=== PATIENT | male | born 1980 | race Caucasian/White ===

== ENCOUNTER 2016-11-08 17:58 | Inpatient (IN) | payer SELFPAY ==
[~2016-11-08] VITALS: Ht 182.9 cm; Wt 53.8 kg
[~2016-11-08 17:58] MED LIST: AMOXICILLIN 50500 MG PO; CEPHALEXIN500 M1 PO; NO HOME MEDICATIONS
[2016-11-08 18:57] LABS: HEMATOCRIT 48.6 % (42.0-52.0); HEMOGLOBIN 17.1 g/dl (13.5-18.0); MEAN CELL VOLUME 94 fl (80.0-100.0); MEAN CORPUSCULAR HEMOGLOBIN 33 pg (27.0-31.0); MEAN CORPUSCULAR HGB CONC 35 g/dl (33.0-37.0); MEAN PLATELET VOLUME 9.5 fl (7.4-10.4); PLATELET COUNT 214 K/mm3 (130-400); RED BLOOD COUNT 5.16 M/mm3 (4.20-5.60); REDCELL DISTRIBUTION WIDTH-CV 14.2 % (11.5-14.5); WHITE BLOOD COUNT 9.2 K/mm3 (4.8-10.8)
[2016-11-08 19:05] LABS: ADD PATHOLOGY DIFF REVIEW NO
[2016-11-08 19:06] LABS: ADJUSTED CALCIUM 9.1 mg/dL (8.4-10.2); ALBUMIN 4.1 gm/dL (3.5-5.0); BILIRUBIN,TOTAL 0.8 mg/dL (0.0-1.0); CALCIUM 9.2 mg/dL (8.4-10.2); CREATININE, serum 0.74 mg/dL (0.66-1.25); POTASSIUM 3.3 mmol/L (3.4-5.0); TOTAL PROTEIN 7.5 gm/dL (6.4-8.2)
[2016-11-08 19:14] LABS: BAND 50 % (0-10); NEUTROPHILS 25 % (42.0-75.2); TOTAL CELLS COUNTED 100
[2016-11-08 19:15] LABS: PLATELET ESTIMATE NORMAL (NORMAL)
[2016-11-08 19:38] LABS: C-REACTIVE PROTEIN 16.6 mg/dL (0.0-0.9)
[2016-11-08 21:17] LABS: PH 6 (5-8); SQUAMOUS EPITHELIAL 0-2 /hpf; URINE APPEARANCE Clear; URINE BACTERIA None Seen /hpf; URINE BILIRUBIN Negative (NEGATIVE); URINE BLOOD Negative (NEGATIVE); URINE COLOR Yellow; URINE GLUCOSE Negative (NEGATIVE); URINE KETONE 1+ (NEGATIVE); URINE RBC 0-2 /hpf; URINE UROBILINOGEN Negative (NEGATIVE); URINE WBC 0-2 /hpf
[2016-11-08 21:45] VITALS: BP 110/67; PULSE 82; TEMP 99
[2016-11-09] VITALS (7 sets, daily range): BP systolic 97–110; BP diastolic 61–73; PULSE 71–81; TEMP 98.3–99.1
[2016-11-10 07:03] LABS: HEMATOCRIT 40.8 % (42.0-52.0); MEAN CELL VOLUME 98 fl (80.0-100.0); MEAN CORPUSCULAR HEMOGLOBIN 33 pg (27.0-31.0); MEAN CORPUSCULAR HGB CONC 34 g/dl (33.0-37.0); MEAN PLATELET VOLUME 10.2 fl (7.4-10.4); PLATELET COUNT 212 K/mm3 (130-400); RED BLOOD COUNT 4.17 M/mm3 (4.20-5.60); REDCELL DISTRIBUTION WIDTH-CV 14.4 % (11.5-14.5)
[2016-11-10 07:07] LABS: HEMOGLOBIN 13.9 g/dl (13.5-18.0)
[2016-11-10 07:08] LABS: ADD PATHOLOGY DIFF REVIEW NO
[2016-11-10 07:19] LABS: CALCIUM 8.2 mg/dL (8.4-10.2); CREATININE, serum 0.63 mg/dL (0.66-1.25); POTASSIUM 3.7 mmol/L (3.4-5.0)
[2016-11-10 07:44] LABS: BAND 18 % (0-10); BASOPHIL 1 % (0-2); EOSINOPHIL 2 % (0-4); METAMYELOCYTE 1 % (0-0); NEUTROPHILS 27 % (42.0-75.2); TOTAL CELLS COUNTED 100
[2016-11-10 08:01] VITALS: BP 109/75; PULSE 74; TEMP 97.6
[2016-11-10 12:34] VITALS: BP 126/77; PULSE 72; TEMP 97.7
[2016-11-10] MEDS ORDERED: CIPRO 500MG TA500 MG PO (14:55)
== END 2016-11-10 17:15 | disposition home or self-care (01) | DRG 385 ==
LOC: COL.ER 17:58 → MEDICAL 20:35
PROVIDERS: Emergency Medicine; Internal Medicine
DX: K51.011 Ulcerative (chronic) pancolitis with rectal bleeding (principal); E43 Unspecified severe protein-calorie malnutrition; Z68.1 Body mass index [BMI] 19.9 or less, adult; A03.8 Other shigellosis; E87.6 Hypokalemia; F17.210 Nicotine dependence, cigarettes, uncomplicated
CPT/HCPCS: 99223-AI; 99232-AI; 99239; J0744; J2270; J2405; J2550; J3480; J7030; J7120; Q9967